=== PATIENT | female | born 1990 | race Hispanic/Latino ===

== ENCOUNTER 2018-03-03 08:59 | Observation (INO) | payer MEDICAID ==
[~2018-03-03] VITALS: Ht 165.1 cm; Wt 96.2 kg
[2018-03-03 12:00] LABS: APPEARANCE,URINE Cloudy (CLEAR); BILIRUBIN,URINE Negative (NEGATIVE); COLOR,URINE Yellow (YELLOW); GLUCOSE, URINE (UA) Negative (NEGATIVE); KETONES,URINE Trace mg/dL (NEGATIVE); LEUKOCYTE ESTERASE ,URINE Large (NEGATIVE); NITRATE,URINE Positive (NEGATIVE); OCCULT BLOOD,URINE Negative (NEGATIVE); PROTEIN,URINE Negative (NEGATIVE)
[2018-03-03 12:04] LABS: RBC,URINE 0-1 /HPF (0-1)
[2018-03-03 12:05] LABS: BACTERIA,URINE Many /HPF (None Seen); MUCUS,URINE Rare LPF (None Seen); SQUAMOUS EPITHELIAL CELL,UR Rare /HPF (0-2)
[2018-03-03 12:07] LABS: AMPHET/METH SCREEN,URINE NEGATIVE (NEGATIVE); BARBITURATE SCREEN, URINE NEGATIVE (NEGATIVE); BENZODIAZEPINES SCREEN,URINE NEGATIVE (NEGATIVE); CANNABINOID SCREEN,URINE NEGATIVE (NEGATIVE); COCAINE SCREEN,URINE NEGATIVE (NEGATIVE); OPIATE SCREEN,URINE NEGATIVE (NEGATIVE); PHENCYCLIDINE SCREEN,URINE NEGATIVE (NEGATIVE)
[2018-03-03] MEDS ORDERED: CEFTRIAXONE SODIUM 1 GM IM SCH (13:15)
[2018-03-03] MEDS ORDERED: LIDOCAINE HCL-MPF 1% 2ML VIAL ONE (13:16)
[2018-03-03] MEDS ORDERED: WATER FOR INJECTION,STERILE 5 ML VIAL ONE (13:17)
== END 2018-03-03 13:42 | disposition home or self-care (01) ==
LOC: EDH 08:59 → LDH 11:43
PROVIDERS: ADMIT Obstetrics & Gynecology; ATTEND Obstetrics & Gynecology
DX: O26.893 Other specified pregnancy related conditions, third trimester (principal); R42 Dizziness and giddiness; Z3A.31 31 weeks gestation of pregnancy
CPT/HCPCS: 59025; 76805; 80305; 81001; 96372; 99284; G0378 ×2; J0696; J3490

== ENCOUNTER 2019-02-09 22:53 | Observation (INO) | payer MEDICAID ==
[~2019-02-09] VITALS: Ht 165.1 cm; Wt 100.2 kg
[2019-02-09] MEDS ORDERED: LACTATED RINGERS 1000ML 1,000 ML IV PRN (23:02)
[2019-02-09 23:24] LABS: APPEARANCE,URINE Clear (CLEAR); BILIRUBIN,URINE Negative (NEGATIVE); COLOR,URINE Yellow (YELLOW); GLUCOSE, URINE (UA) Negative (NEGATIVE); KETONES,URINE Negative (NEGATIVE); LEUKOCYTE ESTERASE ,URINE Moderate (NEGATIVE); NITRATE,URINE Negative (NEGATIVE); OCCULT BLOOD,URINE Negative (NEGATIVE); PH,URINE 6.5 (5.0-8.0); PROTEIN,URINE Negative (NEGATIVE)
[2019-02-09 23:32] LABS: AMPHET/METH SCREEN,URINE NEGATIVE (NEGATIVE); BARBITURATE SCREEN, URINE NEGATIVE (NEGATIVE); BENZODIAZEPINES SCREEN,URINE NEGATIVE (NEGATIVE); CANNABINOID SCREEN,URINE NEGATIVE (NEGATIVE); COCAINE SCREEN,URINE NEGATIVE (NEGATIVE); OPIATE SCREEN,URINE NEGATIVE (NEGATIVE); PHENCYCLIDINE SCREEN,URINE NEGATIVE (NEGATIVE)
[2019-02-09 23:37] LABS: BACTERIA,URINE Few /HPF (None Seen); RBC,URINE 0-1 /HPF (0-1); SQUAMOUS EPITHELIAL CELL,UR Few /HPF (0-2); WBC,URINE 0-1 /HPF (0-1); YEAST,URINE BUDDING Rare /HPF (None Seen)
== END 2019-02-10 00:59 | disposition home or self-care (01) ==
LOC: EDH 22:53 → LDH 22:54
PROVIDERS: ADMIT Internal Medicine; ATTEND Internal Medicine
DX: O62.9 Abnormality of forces of labor, unspecified (principal); O16.3 Unspecified maternal hypertension, third trimester; O34.219 Maternal care for unspecified type scar from previous cesarean delivery; Z86.32 Personal history of gestational diabetes; Z3A.36 36 weeks gestation of pregnancy
CPT/HCPCS: 76805; 80305; 81001; 96360; 96361; G0378

== ENCOUNTER 2020-10-02 12:58 | Observation (INO) | payer MEDICAID ==
[~2020-10-02] VITALS: Ht 167.6 cm; Wt 88.5 kg
[2020-10-02 13:00] VITALS: BP 135/79
[2020-10-02] MEDS ORDERED: LACTATED RINGERS 1000ML 1,000 ML IV SCH (15:00)
== END 2020-10-02 15:00 | disposition home or self-care (01) ==
LOC: EDH 12:58 → LDH 12:59
PROVIDERS: ADMIT Obstetrics & Gynecology; ATTEND Obstetrics & Gynecology
DX: O62.9 Abnormality of forces of labor, unspecified (principal); R10.9 Unspecified abdominal pain; Z3A.36 36 weeks gestation of pregnancy; Z98.891 History of uterine scar from previous surgery
CPT/HCPCS: 96360; G0378 ×2; J7120